=== PATIENT | male | born 1935 | race Caucasian/White ===

== ENCOUNTER 2021-01-06 09:40 | Emergency (ER) | payer MEDICARE, BC ==
--- NOTE | 2021-01-06 10:21 | EDM.PDOC ---
ED HPI GENERAL MEDICAL PROBLEM - General Chief Complaint: Genitourinary Problem Stated Complaint: LEFT SIDE PAIN Time Seen by Provider: 01/06/21 10:12 Source of Information: Reports: Patient, Family, RN Notes Reviewed History Limitations: Reports: No Limitations - History of Present Illness INITIAL COMMENTS - FREE TEXT/NARRATIVE: 85-year-old gentleman presents emergency department day complaint of abdominal pain, he states that it just started this morning it is constant in nature it is predominantly in the left lower quadrant does go into the groin he had a normal bowel movement yesterday no nausea no vomiting no shortness of breath or chest pain he has no history of abdominal surgeries past medical history is only dyslipidemia and hypertension - Related Data Allergies Allergy/AdvReac Type Severity Reaction Status Date / Time codeine AdvReac Other Verified 01/06/21 09:59 Home Meds: Home Meds atenoloL [Atenolol] 50 mg PO DAILY 01/06/21 [History] atorvaSTATin [Lipitor] 20 mg PO BEDTIME 01/06/21 [History] Past Medical History HEENT History: Reports: Impaired Vision Cardiovascular History: Reports: High Cholesterol, Hypertension Respiratory History: Reports: Sleep Apnea Other Respiratory History: cpap Neurological History: Reports: Migraines - Infectious Disease History Infectious Disease History: Reports: Chicken Pox, Measles, Mumps - Past Surgical History Head Surgeries/Procedures: Reports: None HEENT Surgical History: Reports: Cataract Surgery Cardiovascular Surgical History: Reports: None Respiratory Surgical History: Reports: None GI Surgical History: Reports: Hernia, Inguinal Neurological Surgical History: Reports: None Musculoskeletal Surgical History: Reports: Knee Replacement Other Musculoskeletal Surgeries/Procedures:: bilat Dermatological Surgical History: Reports: None Social & Family History - Tobacco Use Tobacco Use Status *Q: Former Tobacco User Used Tobacco, but Quit: Yes Month/Year Tobacco Last Used: 1964 Second Hand Smoke Exposure: No - Caffeine Use Caffeine Use: Reports: Coffee - Alcohol Use Days Per Week of Alcohol Use: 7 Number of Drinks Per Day: 7 Total Drinks Per Week: 49 - Recreational Drug Use Recreational Drug Use: No ED ROS GENERAL - Review of Systems Review Of Systems: See Below Constitutional: Reports: No Symptoms HEENT: Reports: No Symptoms Respiratory: Reports: No Symptoms Cardiovascular: Reports: No Symptoms GI/Abdominal: Reports: Abdominal Pain, Flatus. Denies: Constipation, Diarrhea, Nausea, Vomiting : Reports: No Symptoms ED EXAM, GI/ABD - Physical Exam Exam: See Below Exam Limited By: No Limitations General Appearance: Alert, WD/WN, No Apparent Distress Respiratory/Chest: No Respiratory Distress, Lungs Clear, Normal Breath Sounds, No Accessory Muscle Use, Chest Non-Tender Cardiovascular: Regular Rate, Rhythm, No Murmur GI/Abdominal Exam: Normal Bowel Sounds, Soft, No Distention, No Abnormal Bruit, Tender (Tender left lower quadrant) Course - Vital Signs Last Recorded V/S: Last Vital Signs Temp 97.4 F 01/06/21 10:09 Pulse 68 01/06/21 10:09 Resp 17 01/06/21 10:09 BP 149/88 H 01/06/21 10:09 Pulse Ox 98 01/06/21 10:09 - Orders/Labs/Meds Orders: Active Orders 24 hr Category Date Time Status Abdomen 1V Upright [CR] Urgent Exams 01/06/21 10:17 Taken Labs: Laboratory Tests 01/06/21 01/06/21 01/06/21 Range/Units 10:14 10:20 10:20 WBC 9.8 (4.5-11.0) K/uL RBC 4.71 (4.30-5.90) M/uL Hgb 14.3 (12.0-15.0) g/dL Hct 44.0 (40.0-54.0) % MCV 93 (80-98) fL MCH 30 (27-31) pg MCHC 33 (32-36) % Plt Count 222 (150-400) K/uL Neut % (Auto) 76 H (36-66) % Lymph % (Auto) 13 L (24-44) % [place] % (Auto) 9 H (2-6) % Eos % (Auto) 2 (2-4) % Baso % (Auto) 1 (0-1) % Sodium 140 (140-148) mmol/L Potassium 4.5 (3.6-5.2) mmol/L Chloride 104 (100-108) mmol/L Carbon Dioxide 28 (21-32) mmol/L Anion Gap 8.4 (5.0-14.0) mmol/L BUN 20 H (7-18) mg/dL Creatinine 1.2 (0.8-1.3) mg/dL Est Cr Clr Drug Dosing 46.47 mL/min Estimated GFR (MDRD) 58 L (>60) Glucose 117 H (74-106) mg/dL Lactic Acid (0.4-2.0) mmol/L Calcium 9.3 (8.5-10.1) mg/dL Total Bilirubin 1.2 H (0.2-1.0) mg/dL AST 18 (15-37) U/L ALT 27 (12-78) U/L Alkaline Phosphatase 68 (46-116) U/L Troponin I < 0.017 (0.000-0.056) ng/mL Total Protein 6.8 (6.4-8.2) g/dL Albumin 3.6 (3.4-5.0) g/dL Globulin 3.2 (2.3-3.5) g/dL Albumin/Globulin Ratio 1.1 L (1.2-2.2) Urine Color Yellow (YELLOW) Urine Appearance Clear (CLEAR) Urine pH 5.5 (5.0-8.0) Ur Specific [place] 1.020 (1.008-1.030) Urine Protein Negative (NEGATIVE) mg/dL Urine Glucose (UA) Negative (NEGATIVE) mg/dL Urine Ketones Negative (NEGATIVE) mg/dL Urine Occult Blood Small H (NEGATIVE) Urine Nitrite Negative (NEGATIVE) Urine Bilirubin Negative (NEGATIVE) Urine Urobilinogen 0.2 (0.2-1.0) EU/dL Ur Leukocyte Esterase Negative (NEGATIVE) Urine RBC 5-10 H (0-5) Urine WBC 0-5 (0-5) Ur Epithelial Cells Rare Amorphous Sediment Not seen Urine Bacteria Not seen Urine Mucus Not seen 01/06/21 Range/Units 10:20 WBC (4.5-11.0) K/uL RBC (4.30-5.90) M/uL Hgb (12.0-15.0) g/dL Hct (40.0-54.0) % MCV (80-98) fL MCH (27-31) pg MCHC (32-36) % Plt Count (150-400) K/uL Neut % (Auto) (36-66) % Lymph % (Auto) (24-44) % [place] % (Auto) (2-6) % Eos % (Auto) (2-4) % Baso % (Auto) (0-1) % Sodium (140-148) mmol/L Potassium (3.6-5.2) mmol/L Chloride (100-108) mmol/L Carbon Dioxide (21-32) mmol/L Anion Gap (5.0-14.0) mmol/L BUN (7-18) mg/dL Creatinine (0.8-1.3) mg/dL Est Cr Clr Drug Dosing mL/min Estimated GFR (MDRD) (>60) Glucose (74-106) mg/dL Lactic Acid 1.5 (0.4-2.0) mmol/L Calcium (8.5-10.1) mg/dL Total Bilirubin (0.2-1.0) mg/dL AST (15-37) U/L ALT (12-78) U/L Alkaline Phosphatase (46-116) U/L Troponin I (0.000-0.056) ng/mL Total Protein (6.4-8.2) g/dL Albumin (3.4-5.0) g/dL Globulin (2.3-3.5) g/dL Albumin/Globulin Ratio (1.2-2.2) Urine Color (YELLOW) Urine Appearance (CLEAR) Urine pH (5.0-8.0) Ur Specific [place] (1.008-1.030) Urine Protein (NEGATIVE) mg/dL Urine Glucose (UA) (NEGATIVE) mg/dL Urine Ketones (NEGATIVE) mg/dL Urine Occult Blood (NEGATIVE) Urine Nitrite (NEGATIVE) Urine Bilirubin (NEGATIVE) Urine Urobilinogen (0.2-1.0) EU/dL Ur Leukocyte Esterase (NEGATIVE) Urine RBC (0-5) Urine WBC (0-5) Ur Epithelial Cells Amorphous Sediment Urine Bacteria Urine Mucus Meds: Medications Discontinued Medications Generic Name Dose Route Start Last Admin Trade Name Freq PRN Reason Stop Dose Admin Ondansetron HCl 4 mg 01/06/21 11:06 Zofran Odt PO 01/06/21 11:07 ONETIME ONE Departure - Departure Time of Disposition: 11:11 Disposition: Home, Self-Care 01 Condition: Fair Clinical Impression: Functional constipation - Discharge Information Instructions: Constipation, Adult, [id number] Referrals: PCP,None [Primary Care Provider] - Forms: ED Department Discharge Additional Instructions: Try the MiraLAX and the colonoscopy prep, please followup with your primary care provider in 3-5 days if not better, please call return to the emergency department with worsening of symptoms. Sepsis Event Note (ED) - Evaluation Sepsis Screening Result: No Definite Risk - Focused Exam Vital Signs: Vital Signs Temp Pulse Resp BP Pulse Ox 01/06/21 10:09 97.4 F 68 17 149/88 H 98 01/06/21 10:03 97.4 F 68 17 149/88 H 98 - My Orders Last 24 Hours: My Active Orders 01/06/21 10:17 Abdomen 1V Upright [CR] Urgent - Assessment/Plan Last 24 Hours: My Active Orders 01/06/21 10:17 Abdomen 1V Upright [CR] Urgent Plan: Assessment Acuity = acute Site and laterality = functional constipation Etiology = slow transit time Manifestations = abdominal pain Location of injury = Home Lab values = CBC, CMP, troponin, urinalysis within normal limits plain film the abdomen does show large amount of stool Plan I did review lab work CT scan results with him plan is willing to try the colonoscopy prep follow-up primary care as needed This note was dictated using [employer] voice recognition software please call with any questions on syntax or grammar.
[2021-01-06] MEDS ORDERED: Ondansetron 4 MG Tab.DIS PO ONE (11:06)
--- NOTE | 2021-01-08 08:55 | CR ---
Abdomen 1V Upright CLINICAL HISTORY: Left lower quadrant pain FINDINGS: There is moderate retained stool throughout the colon. Small chest gas pattern is nonspecific. There is a 10 cm rounded density in the left midabdomen. This may represent a cyst off the lower pole of the left kidney. Intra-abdominal mass is not excluded. IMPRESSION: Nonacute intestinal gas pattern Moderate retained stool 10 cm density in the left midabdomen may represent a renal cyst. Abdominal mass is not excluded. Follow-up recommended. Ultrasound or CT are considerations
--- NOTE | 2021-01-10 07:09 | LETTER ---
01/09/2021 Emiliano Colbert [address] [place], [place] [address] RE: RAMEZ EMILIANO SAMUEL : 1935 Dear Emiliano: You recently were at the emergency room, and Officer evaluated you. At that time, you were treated as constipation and advised to use MiraLAX and a colonoscopy prep. In reviewing the x-rays that were obtained at that time, there is a 10 cm density in the left abdomen which is somewhat undetermined whether it is cysts on your kidney or something else. At this time, I do feel that this needs to be evaluated further, and when you see your own physician which Officer advised you to do in 3 to 5 days, please bring this letter and bring it to the attention of your physician. It is my opinion that you probably should have a CAT scan of the abdomen and pelvis. If you have questions of me, feel free to contact me. Sincerely, /[id number]
== END 2021-01-06 11:23 | disposition home or self-care (01) ==
LOC: JP.ED 09:40
DX: K59.04 Chronic idiopathic constipation (principal); E78.00 Pure hypercholesterolemia, unspecified; I10 Essential (primary) hypertension; Z79.899 Other long term (current) drug therapy; Z88.5 Allergy status to narcotic agent; Z87.891 Personal history of nicotine dependence
CPT/HCPCS: 36415; 74018; 74018-26; 80053; 81001; 83605; 84484; 85025; 99283; 99284-25